=== PATIENT | female | born 1995 | race African-American/Black ===

== ENCOUNTER 2016-06-11 20:52 | Emergency (ER) | payer MEDICAID ==
[~2016-06-11] VITALS: Ht 162.6 cm; Wt 78.0 kg
[2016-06-11] MEDS ORDERED: KETOROLAC 60MG/2ML VIAL IM STA (22:51)
[2016-06-11] MEDS ORDERED: DIPHENHYDRAMINE 50MG/ML VIAL IM ONE (23:00)
[2016-06-11 23:13] LABS: BASOPHILS % 0.6 % (0.0-2.0); HEMATOCRIT. 27.7 % (36.0-48.0); HEMOGLOBIN. 8.8 g/dL (12.0-16.0); LYMPHOCYTES % 31.2 % (20.0-50.0); MEAN CORPUSCULAR HEMOGLOBIN 21.3 pg (28.0-32.0); MEAN CORPUSCULAR HGB CONC 31.8 g/dL (31.0-37.0); MEAN CORPUSCULAR VOLUME 66.9 fL (81.0-99.0); MEAN PLATELET VOLUME 8.1 fl (7.4-10.4); MONOCYTES % 5.7 % (2.0-8.0); NEUTROPHILS % 60.5 % (40.0-76.0); PLATELET 325 x1000/uL (130-400); RED BLOOD CELL COUNT 4.14 mill/uL (4.2-5.4); RED CELL DISTRIBUTION WIDTH 17.6 % (11.6-14.6); WHITE BLOOD COUNT 9.4 x1000/uL (4.5-11.0)
[2016-06-11 23:15] LABS: ADD RBC MORPHOLOGY YES; DIFFERENTIAL COMMENT 1
[2016-06-11 23:18] LABS: CHLORIDE 106 mEq/L (98-107); INDEX HEMOLYSI 1 (1-3); INDEX ICTERIC 1 (1-4); INDEX LIPEMIC 1 (1-3)
[2016-06-11 23:24] LABS: HYPOCHROMASIA 2+; OVALOCYTES 1+; PLATELET ESTIMATE NORMAL
[2016-06-11 23:26] LABS: ALANINE AMINOTRANSFERASE 19 IU/L (13-61); ALBUMIN 3.6 g/dL (3.4-5.0); ANION GAP 14; CALCIUM 8.4 mg/dL (8.5-10.1); CARBON DIOXIDE 26 mEq/L (21-32); UREA NITROGEN BLOOD 16 mg/dL (7-21); eGFR > 60 mL/min (>60)
[2016-06-11 23:40] LABS: HCG SCREEN NEGATIVE
[2016-06-12 02:30] VITALS: BP 128/76
== END 2016-06-12 02:30 | disposition home or self-care (01) ==
LOC: ER 20:55
DX: R07.9 Chest pain, unspecified (principal); R00.2 Palpitations; R06.02 Shortness of breath; R42 Dizziness and giddiness; K21.9 Gastro-esophageal reflux disease without esophagitis; R11.0 Nausea; R20.2 Paresthesia of skin
CPT/HCPCS: 36415; 71010; 80053; 84703; 85025; 93005; 96372; 99285; J1200; J1885; Z7610

== ENCOUNTER 2017-09-24 15:19 | Emergency (ER) | payer MEDICAID ==
[~2017-09-24] VITALS: Ht 165.1 cm; Wt 100.8 kg
[2017-09-24 17:22] LABS: CLARITY URINE CLOUDY (CLEAR); COLOR URINE YELLOW (YELLOW); KETONES URINE NEGATIVE (NEGATIVE); LEUKOCYTE ESTERASE URINE TRACE (NEGATIVE); NITRITE URINE NEGATIVE (NEGATIVE); OCCULT BLOOD URINE 2+ (NEGATIVE); PH URINE >=9.0 (4.5-8.0); PROTEIN URINE NEGATIVE (NEGATIVE); SPECIFIC GRAVITY URINE 1.022 (1.005-1.030); UROBILINOGEN URINE 0.2 E.U./dL (0.2-1.0)
[2017-09-24 19:11] LABS: BASOPHILS % 0.3 % (0.0-2.0); EOSINOPHILS % 2.8 % (0.0-5.0); HEMATOCRIT. 35.2 % (36.0-48.0); LYMPHOCYTES % 28.7 % (20.0-50.0); MEAN CORPUSCULAR HEMOGLOBIN 22.8 pg (28.0-32.0); MEAN CORPUSCULAR VOLUME 72.6 fL (81.0-99.0); MEAN PLATELET VOLUME 8.8 fl (7.4-10.4); MONOCYTES % 7.7 % (2.0-8.0); NEUTROPHILS % 60.5 % (40.0-76.0); PLATELET 327 x1000/uL (130-400); RED BLOOD CELL COUNT 4.85 mill/uL (4.2-5.4); RED CELL DISTRIBUTION WIDTH 20.3 % (11.6-14.6)
[2017-09-24 19:18] LABS: CHLORIDE 109 mEq/L (98-107)
[2017-09-24 19:22] LABS: PARTIAL THROMBOPLASTIN TIME 29.1 sec (23.4-31.0); PROTHROMBIN TIME 10.5 sec (9.4-11.6)
[2017-09-24 19:51] LABS: B-HCG QUANTITATIVE 53921 mIU/mL (<3)
[2017-09-24 21:19] VITALS: BP 123/64
== END 2017-09-24 21:20 | disposition home or self-care (01) ==
LOC: ER 16:22
DX: O20.9 Hemorrhage in early pregnancy, unspecified (principal); O23.41 Unspecified infection of urinary tract in pregnancy, first trimester; O26.891 Other specified pregnancy related conditions, first trimester; K21.9 Gastro-esophageal reflux disease without esophagitis; Z3A.09 9 weeks gestation of pregnancy
CPT/HCPCS: 36415; 76830; 76856; 80053; 81003; 81025; 84702; 85025; 85610; 85730; 86850; 86900; 86901; 99285; Z7610